=== PATIENT | female | born 1985 | race Caucasian/White ===

== ENCOUNTER 2019-01-23 09:36 | Emergency (ER) | payer OTHER ==
[~2019-01-23] VITALS: Ht 167.6 cm; Wt 63.0 kg
[~2019-01-23 09:36] MED LIST: IBUP-974 PO; PREN-385 PO
[2019-01-23 09:40] VITALS: BP 104/70
--- NOTE | 2019-01-23 09:47 | NUR ---
pt ambulated to er bed 12
--- NOTE | 2019-01-23 10:02 | NUR ---
33 YO F BIB FAMILY W/ C/O MEDIAL BACK PAIN AND CHEST WALL/RIB CAGE PAIN X 1 DAY. DENIES COUGH OR INJURY. AMB W/ STEADY GAIT, DENIES N/V/D, FEVER, CHILLS. DENIES PAIN WITH URINATION. PT REPORTS HX OF UPPER BACK PAIN. PAIN 7/10; VSS; PATIENT POSITIONED FOR COMFORT; HOB ELEVATED; BEDRAILS UP X2; BED DOWN. ER MD MADE AWARE OF PT STATUS.
[2019-01-23] MEDS ORDERED: DICYCLOMINE 20 MG/2 ML VIAL IM ONE (10:25)
[2019-01-23] MEDS ORDERED: KETOROLAC 60 MG/2 ML VIAL IM ONE (10:25)
[2019-01-23] MEDS ORDERED: LACTULOSE 20 GM/30 ML UDC PO ONE (11:25)
[2019-01-23 11:33] LABS: BARBITURATE, URINE NEG. ng/ml (NEG <=200); BENZODIAZEPINE, URINE NEG. ng/mL (NEG <=200); CANNABINOID, URINE NEG. ng/mL (NEG <=50); COCAINE, URINE NEG. ng/mL (NEG <=300); OPIATE, URINE NEG. ng/mL (NEG <=2000); PHENCYCLIDINE SCREEN,URINE NEG. ng/mL (NEG <=25)
[2019-01-23 11:36] LABS: APPEARANCE,URINE CLEAR (CLEAR); BILIRUBIN,URINE NEGATIVE (NEGATIVE); BLOOD, URINE NEGATIVE (NEGATIVE); COLOR,URINE YELLOW (YELLOW); LEUKOCYTE ESTERASE ,URINE NEGATIVE (NEGATIVE); NITRITE, URINE NEGATIVE (NEGATIVE); PH,URINE 6.5 (5.0-9.0); UGLUCOSE NEGATIVE (NEGATIVE)
[2019-01-23 11:48] VITALS: BP 104/70
== END 2019-01-23 11:49 | disposition home or self-care (01) ==
LOC: MED 09:36
DX: R10.9 Unspecified abdominal pain (principal); Z79.1 Long term (current) use of non-steroidal anti-inflammatories (NSAID); Z79.899 Other long term (current) drug therapy
CPT/HCPCS: 74018; 80305; 81003; 81025; 96372; 99284; J0500; J1885

== ENCOUNTER 2019-02-12 11:29 | Emergency (ER) | payer OTHER ==
[~2019-02-12] VITALS: Ht 165.1 cm; Wt 62.6 kg
[2019-02-12 11:37] VITALS: BP 102/67
--- NOTE | 2019-02-12 11:50 | NUR ---
PT AMBULATED TO BED 8
--- NOTE | 2019-02-12 11:55 | NUR ---
PT BIB SELF C/O THORACIC REGION PACK PAIN RADIATING TO RIBS AND STERNUM 06/10 [place], INTERMITTENT; CHRONIC. PT WAS SEEN BY PCP AND REFERRED TO SPECIALIST. APPT ON 03/03/2019. HX: DENIES RX: IBUPROFEN
--- NOTE | 2019-02-12 13:00 | NUR ---
PT ON BED IN SUPINE POSITION EYES OPEN, RESPIS E/U, DENIES CP/SOB AT THIS TIME. PT ON FULL MONITOR, BED LOCKED IN LOW POSITION, NO IDENTIFIED REQUESTS AT THIS TIME.
[2019-02-12 14:34] VITALS: BP 110/65
--- NOTE | 2019-02-12 14:43 | NUR ---
Patient discharged with v/s stable. Written and verbal after care instructions given and explained. Patient alert, oriented and verbalized understanding of instructions. Ambulatory with steady gait. All questions addressed prior to discharge. ID band removed. Patient advised to follow up with PMD. Rx of VALIUM, NORCO given. Patient educated on indication of medication including possible reaction and side effects. Opportunity to ask questions provided and answered.
== END 2019-02-12 14:43 | disposition home or self-care (01) ==
LOC: MED 11:29
DX: M54.6 Pain in thoracic spine (principal); Z79.1 Long term (current) use of non-steroidal anti-inflammatories (NSAID); Z79.899 Other long term (current) drug therapy
CPT/HCPCS: 71046; 81002; 81025; 99283

== ENCOUNTER 2019-05-12 12:20 | Emergency (ER) | payer OTHER ==
[~2019-05-12] VITALS: Ht 165.1 cm; Wt 61.7 kg
[2019-05-12 12:28] VITALS: BP 99/55
--- NOTE | 2019-05-12 12:31 | NUR ---
URINE CUP HANDED TO PT FOR SAMPLE
[2019-05-12 13:45] LABS: BASOPHILS % (AUTO) 0.2 % (0.0-2.0); EOSINOPHILS % (AUTO) 0.5 % (0.0-4.0); HEMATOCRIT 29.2 % (36-48); HEMOGLOBIN 8.7 g/dL (12.0-16.0); LYMPHOCYTES # (AUTO) 1.3 K/uL (2.5-16.5); LYMPHOCYTES % (AUTO) 19.1 % (20.5-51.1); MEAN CORPUSCULAR HEMOGLOBIN 19 pg (27-31); MEAN CORPUSCULAR HGB CONC 30 g/dL (33-37); MEAN CORPUSCULAR VOLUME 61.8 fL (80-94); MONOCYTES # (AUTO) 0.5 K/uL (0.8-1.0); MONOCYTES % (AUTO) 6.6 % (1.7-9.3); NEUTROPHILS % (AUTO) 73.6 % (42.2-75.2); PLATELET COUNT (AUTO) 336 K/uL (140-450); RED BLOOD CELL COUNT(AUTO) 4.72 MIL/uL (4.20-5.40); RED CELL DISTRIBUTION WIDTH 19.4 % (11.6-13.7); WHITE BLOOD COUNT (AUTO) 6.8 K/uL (4.8-10.8)
[2019-05-12 13:49] LABS: APPEARANCE,URINE HAZY (CLEAR); BILIRUBIN,URINE NEGATIVE (NEGATIVE); BLOOD, URINE TRACE-I (NEGATIVE); COLOR,URINE YELLOW (YELLOW); LEUKOCYTE ESTERASE ,URINE 1+ (NEGATIVE); NITRITE, URINE NEGATIVE (NEGATIVE); UGLUCOSE NEGATIVE (NEGATIVE)
--- NOTE | 2019-05-12 14:05 | NUR ---
Patient ambulated to bed 12 at this time.
[2019-05-12 14:23] LABS: RBC,URINE 0-5 /HPF (0-5); WBC,URINE 16-25 (MOD) /HPF (0-5)
--- NOTE | 2019-05-12 14:30 | NUR ---
PT COMPLAINING OF SUDDEN ONSET OF RUQ PAIN IN AM AND HAS LOWER BACK PAIN. WAS 9 /10 IN AM, DENIES PAIN AT THIS TIME. PT APPEARS RESTING COMFORTABLY IN GURNEY AT THIS TIME. NO VAGINAL BLEEDING.
[2019-05-12 16:09] VITALS: BP 97/58
--- NOTE | 2019-05-12 16:12 | NUR ---
Chart checked and completed. The patient's care was reviewed and supervised by Zuleyma Willson RN.
== END 2019-05-12 16:12 | disposition home or self-care (01) ==
LOC: MED 12:20
DX: O23.41 Unspecified infection of urinary tract in pregnancy, first trimester (principal); O99.611 Diseases of the digestive system complicating pregnancy, first trimester; K21.9 Gastro-esophageal reflux disease without esophagitis; Z3A.01 Less than 8 weeks gestation of pregnancy; Z79.1 Long term (current) use of non-steroidal anti-inflammatories (NSAID); Z79.899 Other long term (current) drug therapy
CPT/HCPCS: 36415; 76817; 81001; 81025; 84702; 85025; 86900; 86901; 87086; 99284; Q0092

== ENCOUNTER 2019-12-23 05:04 | Inpatient (IN) | payer OTHER ==
[2019-12-22 16:48] LABS: BASOPHILS % (AUTO) 0.3 % (0.0-2.0); EOSINOPHILS % (AUTO) 0.5 % (0.0-4.0); HEMATOCRIT 39.4 % (36-48); HEMOGLOBIN 12.8 g/dL (12.0-16.0); LYMPHOCYTES # (AUTO) 1.4 K/uL (2.5-16.5); LYMPHOCYTES % (AUTO) 21.2 % (20.5-51.1); MEAN CORPUSCULAR HEMOGLOBIN 29 pg (27-31); MEAN CORPUSCULAR HGB CONC 33 g/dL (33-37); MEAN CORPUSCULAR VOLUME 88.4 fL (80-94); MONOCYTES # (AUTO) 0.7 K/uL (0.8-1.0); MONOCYTES % (AUTO) 10.2 % (1.7-9.3); NEUTROPHILS # (AUTO) 4.6 K/uL (1.8-7.7); NEUTROPHILS % (AUTO) 67.8 % (42.2-75.2); PLATELET COUNT (AUTO) 258 K/uL (140-450); RED BLOOD CELL COUNT(AUTO) 4.46 MIL/uL (4.20-5.40); RED CELL DISTRIBUTION WIDTH 16.5 % (11.6-13.7); WHITE BLOOD COUNT (AUTO) 6.8 K/uL (4.8-10.8)
[~2019-12-23] VITALS: Ht 152.4 cm; Wt 67.1 kg
[2019-12-23 08:00] VITALS: BP 96/61
[2019-12-23] MEDS ORDERED: LACTATED RINGERS 1,000 ML IV SCH (08:00)
[2019-12-23 08:10] LABS: HEPATITIS B SURFACE ANTIGEN Negative (Negative)
[2019-12-23] MEDS ORDERED: ceFAZolin 1,000 MG VIAL ONE ×2 (08:23→08:24)
[2019-12-23] MEDS ORDERED: CITRIC ACID/SODIUM CITRATE 30 ML UDC PO SCH (08:30)
--- NOTE | 2019-12-23 08:42 | NUR ---
PATIENT HAS BEEN SCREENED AND CATEGORIZED LOW NUTRITION RISK. PATIENT WILL BE SEEN WITHIN 7 DAYS OF ADMISSION. 12/29/[address]
[2019-12-23] MEDS ORDERED: EPINEPHrine 1:1000 1 MG/ML VIAL IV ONE (08:50)
[2019-12-23] MEDS ORDERED: MORPHINE SULFATE 2 MG/ML SYR ONE (08:50)
[2019-12-23] MEDS ORDERED: oxyCODONE/APAP 5/325 MG 1 TAB TAB PO PRN (09:00)
[2019-12-23] MEDS ORDERED: TEMAZEPAM 15 MG CAP PO PRN (09:00)
[2019-12-23] MEDS ORDERED: MAGNESIUM CITRATE 300 ML BTL PO SCH (09:00)
[2019-12-23] MEDS ORDERED: METHYLERGONOVINE 0.2 MG/ML AMP IM PRN (09:00)
[2019-12-23] MEDS ORDERED: ONDANSETRON 4 MG/2 ML VIAL IVP PRN ×2 (09:30)
[2019-12-23] MEDS ORDERED: NALBUPHINE 10 MG/ML AMP IVP PRN (09:30)
[2019-12-23] MEDS ORDERED: KETOROLAC 30 MG/ML VIAL IVP PRN (09:30)
[2019-12-23] MEDS ORDERED: OXYTOCIN 20 UNITS in DEXT 5% / LACT RING 1,000 ML IV SCH (09:30)
[2019-12-23] MEDS ORDERED: NALOXONE 0.4 MG/ML VIAL IVP PRN ×3 (09:30)
[2019-12-23] MEDS ORDERED: diphenhydrAMINE 50 MG/ML VIAL IVP PRN (09:30)
[2019-12-23] MEDS ORDERED: OXYTOCIN 20 UNITS/LR PREMIX 1,000 ML IV ONE (10:00)
[2019-12-23] MEDS ORDERED: OXYTOCIN 20 UNITS in LACTATED RINGERS 1,000 ML IV SCH (12:40)
[2019-12-24] MEDS ORDERED: OXYTOCIN 20 UNITS/LR PREMIX 1,000 ML IV ONE (00:38)
[2019-12-24 06:14] LABS: BASOPHILS % (AUTO) 0.2 % (0.0-2.0); EOSINOPHILS % (AUTO) 0.3 % (0.0-4.0); HEMATOCRIT 37.3 % (36-48); HEMOGLOBIN 12.1 g/dL (12.0-16.0); LYMPHOCYTES # (AUTO) 1.5 K/uL (2.5-16.5); LYMPHOCYTES % (AUTO) 12.9 % (20.5-51.1); MEAN CORPUSCULAR HEMOGLOBIN 29 pg (27-31); MEAN CORPUSCULAR HGB CONC 33 g/dL (33-37); MONOCYTES % (AUTO) 9.2 % (1.7-9.3); NEUTROPHILS # (AUTO) 8.8 K/uL (1.8-7.7); NEUTROPHILS % (AUTO) 77.4 % (42.2-75.2); PLATELET COUNT (AUTO) 247 K/uL (140-450); RED BLOOD CELL COUNT(AUTO) 4.23 MIL/uL (4.20-5.40); RED CELL DISTRIBUTION WIDTH 16.5 % (11.6-13.7); WHITE BLOOD COUNT (AUTO) 11.3 K/uL (4.8-10.8)
[2019-12-24] MEDS: IBUPROFEN 800 MG TAB PO PRN ×2 (14:19→23:57)
[2019-12-24] MEDS: SIMETHICONE 80 MG TAB.CHEW PO PRN (15:14)
[2019-12-24] MEDS: SODIUM PHOSPHATE 118 ML ENEM RC SCH (15:15)
[2019-12-24] MEDS: DOCUSATE SOD/SENNA 50/8.6 MG 1 TAB PO SCH (21:27)
[2019-12-25] MEDS: SIMETHICONE 80 MG TAB.CHEW PO PRN (11:47)
[2019-12-25] MEDS: HYDROcodone/APAP 5/325 MG 1 TAB TAB PO PRN (11:47)
[2019-12-25] MEDS: IBUPROFEN 800 MG TAB PO PRN (20:11)
[2019-12-25] MEDS: DOCUSATE SOD/SENNA 50/8.6 MG 1 TAB PO SCH (21:11)
[2019-12-26] MEDS ORDERED: CAMERA MC ONE (01:16)
[2019-12-26] MEDS: SODIUM PHOSPHATE 118 ML ENEM RC SCH (09:00)
[2019-12-26] MEDS: IBUPROFEN 800 MG TAB PO PRN (11:21)
[2019-12-26] MEDS: HYDROcodone/APAP 5/325 MG 1 TAB TAB PO PRN (22:26)
[2019-12-27] MEDS: SODIUM PHOSPHATE 118 ML ENEM RC SCH (09:00)
[2019-12-27] MEDS: IBUPROFEN 800 MG TAB PO PRN (09:08)
== END 2019-12-27 13:25 | disposition home or self-care (01) | DRG 540 ==
LOC: MLD 06:35 → MFCC 08:38
PROVIDERS: ADMIT Obstetrics & Gynecology; ATTEND Obstetrics & Gynecology
PROC: 10D00Z1 Extraction of Products of Conception, Low, Open Approach (ICD-10-PCS; principal; 2019-12-23 09:00)
DX: O34.211 Maternal care for low transverse scar from previous cesarean delivery (principal); Z37.0 Single live birth; Z3A.39 39 weeks gestation of pregnancy
CPT/HCPCS: 36415; 85025; 86592; 86702; 86762; 86886; 86900; 86901; 87340; J0171; J0690; J1200; J1885; J2270; J2405; J2590; J7060; J7120